=== PATIENT | female | born 1980 | race Caucasian/White ===

== ENCOUNTER → 2017-07-18 | Outpatient (CLI) | payer MEDICARE, MEDICAID ==
[~2017-07-18] MED LIST: BENTYL10 M1 PO; CITALOPRAM40 MG PO; GABAPENTIN300 M2 PO; ORTHO TRI-CYCLE1 TAB PO; RISPERDAL2 MG PO
[2017-07-18 15:39] LABS: AMPHETAMINES/METAMPHETAMINES NEGATIVE ng/mL (<1000)
== END ==
LOC: LAB 12:36
PROVIDERS: Emergency Medicine
DX: Z79.899 Other long term (current) drug therapy (principal)

== ENCOUNTER → 2017-10-22 | Outpatient (CLI) | payer MEDICARE ==
[2017-10-22 11:26] LABS: HEMOGLOBIN 12.7 g/dL (12.2-16.2); LYMPH # 2.1 K/mm3 (0.7-4.5); LYMPH % 27.5 % (10-50.0)
[2017-10-23 07:37] LABS: FSH 5.8 mIU/mL (.); Prolactin 27.4 ng/mL (4.8-23.3)
== END ==
LOC: LAB 11:05
PROVIDERS: Nurse Practitioner Obstetrics & Gynecology
DX: N92.0 Excessive and frequent menstruation with regular cycle (principal); N64.3 Galactorrhea not associated with childbirth

== ENCOUNTER → 2017-10-27 | Outpatient (CLI) | payer MEDICARE ==
--- NOTE | 2017-10-27 14:25 | RADIOLOGY REPORT PS360 ---
US PELVIS-TRANSVAGINAL ONLY HISTORY: Dysfunctional uterine bleeding DUB ORDERING PHYSICIAN: Baljinder Mathis MD PATIENT AGE: 37 years COMPARISON: None FINDINGS: Uterus measures 8 x 4 x 6 cm with a combined endometrial thickness of 7 mm. No uterine mass is evident. There is a prominent nabothian cyst at 1 cm. The left ovary is 4 x 2.4 cm and contains a 2.8 x 2 cm cyst. The right ovary is 2.8 x 1.8 cm and contains small follicles the largest of which is 1 cm. No cul-de-sac fluid evident. IMPRESSION: 1. 2.8 x 2 cm left ovarian cyst 2. 1 cm Nabothian cyst 3. Otherwise negative pelvic ultrasound
== END ==
LOC: RAD 10:36
DX: N93.8 Other specified abnormal uterine and vaginal bleeding (principal)